=== PATIENT | female | born 1940 | race Caucasian/White ===

== ENCOUNTER 2021-01-11 14:50 | Inpatient (IN) ==
[2021-01-11] MEDS ORDERED: Ondansetron 4 MG/2 ML VIAL IVP ONE ×2 (14:54→17:36)
[2021-01-11] MEDS ORDERED: 0.9 % Sodium Chloride 1,000 ML IVC ONE (14:54)
[2021-01-11] MEDS ORDERED: Isovue-370 500 ML BOTTLE IVP ONE (14:55)
[2021-01-11] MEDS ORDERED: *HR* FentaNYL (PF) 100 MCG/2 ML VIAL IVP ONE (15:10)
[2021-01-11 16:09] LABS: Alanine Aminotransferase 12 Units/L (7-52); Albumin 4.4 g/dL (3.5-5.7); Albumin/Globulin Ratio 1.6 (1.1-2.2); Alkaline Phosphatase 103 Units/L (34-104); Aspartate Amino Transferase 20 Units/L (13-39); BUN/Creatinine Ratio 29 (6-26); Bilirubin,Direct 0.2 mg/dL (0.0-0.2); Bilirubin,Indirect 0.5 mg/dL (0.0-1.0); Bilirubin,Total 0.7 mg/dL (0.3-1.0); Blood Urea Nitrogen 25 mg/dL (8-23); Calcium 9.9 mg/dL (8.6-10.3); Carbon Dioxide 28 mEq/L (23-29); Chloride 96 mEq/L (98-107); Globulin 2.7 g/dL (2.4-3.5); Glucose 151 mg/dL (70-105); Osmolality,Calculated 291 (280-300); Potassium 3.6 mEq/L (3.5-5.1); Sodium 137 mEq/L (136-145); Total Protein 7.1 g/dL (6.4-8.9); Troponin I < 0.03 ng/mL (< 0.04); eGFR For African Americans > 60 (> 60); eGFR For Non-African Americans > 60 (> 60)
[2021-01-11 16:15] LABS: Bacteria,Urine Few per hpf (None-Few); Bilirubin,Urine Negative (Negative); Blood,Urine Negative (Negative); Clarity,Urine Clear (Clear); Color,Urine Yellow (Yellow); Glucose,Urine (UA) Normal (Normal); Hyaline Casts,Urine Few per lpf (None Seen); Ketones,Urine 40 mg/dL (Negative); Leukocyte Esterase,Urine Large (Negative); Mucus,Urine Few per lpf (None-Few); Nitrite,Urine Negative (Negative); PH,Urine 5.5 pH Units (5.0-8.0); Protein,Urine 30 mg/dL (Neg-Trace); Specific Gravity,Urine > 1.030 (1.010-1.025); Squamous Epithelial Cell,Urine Moderate per hpf (None-Few); WBC,Urine 30-50 per hpf (0-3)
[2021-01-11 16:18] LABS: Basophils % 0.2 %
[2021-01-11 16:20] LABS: Hematocrit 42.4 % (35.3-44.9)
[2021-01-11 16:26] LABS: Hemoglobin 14.3 g/dL (11.5-15.4); Immature Granulocytes % 0.3 % (0-4); Immature Platelets 3.8 % (1.1-6.1); Lymphocytes # 0.7 K/mcL (0.6-4.6); Lymphocytes % 6.8 %; Mean Corpuscular HGB Conc 33.7 g/dL (31.6-35.5); Mean Corpuscular Hemoglobin 30.6 pg (28.0-33.3); Mean Corpuscular Volume 90.6 fL (83.0-100.0); Mean Platelet Volume 10.3 fL (9.4-12.4); Monocytes # 0.4 K/mcL (0.0-1.3); Monocytes % 3.6 %; Platelet Count 262 K/mcL (140-400); Red Blood Count 4.68 M/mcL (3.82-4.97); Red Cell Distribution Width 12.1 % (11.5-14.5); Segmented Neutrophils % 89.1 %; White Blood Count 10.1 K/mcL (4.3-11.1)
[2021-01-11 16:42] LABS: Platelet Estimate Normal (Normal)
[2021-01-11] MEDS ORDERED: cefTRIAXone 1,000 MG in 0.9 % Sodium Chloride Mini Bag 100 ML IVPB ONE (16:43)
[2021-01-11] MEDS ORDERED: *HR* HYDROmorphone (PF) 1 MG/ML SYRINGE IVP ONE (18:29)
[2021-01-11] MEDS ORDERED: Metoclopramide 10 MG/2 ML VIAL IVP STA (18:29)
[2021-01-11] MEDS ORDERED: Ondansetron 4 MG/2 ML VIAL IVP PRN (21:39)
[2021-01-11] MEDS ORDERED: Naloxone 0.4 MG/ML INJ IVP PRN (21:39)
[2021-01-11] MEDS ORDERED: Ketorolac 15 MG/ML VIAL IVP ONE (22:19)
[2021-01-11] MEDS ORDERED: *HR* Metoprolol 5 MG/5 ML VIAL IVP ONE (23:16)
[2021-01-11] MEDS: 0.9 % Sodium Chloride 1,000 ML IVC SCH (23:19)
[2021-01-12] MEDS: Chloraseptic Spray 177 ML BOTTLE MM PRN ×2 (00:45→20:26)
[2021-01-12] MEDS: Famotidine 20 MG/2 ML VIAL IVP SCH ×2 (00:45→08:50)
[2021-01-12 05:30] LABS: Mean Corpuscular HGB Conc 33.1 g/dL (31.6-35.5); Mean Corpuscular Hemoglobin 30.6 pg (28.0-33.3); Mean Corpuscular Volume 92.4 fL (83.0-100.0); Mean Platelet Volume 10.2 fL (9.4-12.4); Platelet Count 182 K/mcL (140-400); Red Blood Count 3.14 M/mcL (3.82-4.97); Red Cell Distribution Width 12.4 % (11.5-14.5)
[2021-01-12 05:31] LABS: Hemoglobin 9.6 g/dL (11.5-15.4)
[2021-01-12 05:47] LABS: BUN/Creatinine Ratio 28 (6-26); Blood Urea Nitrogen 24 mg/dL (8-23); Calcium 8.3 mg/dL (8.6-10.3); Carbon Dioxide 33 mEq/L (23-29); Chloride 101 mEq/L (98-107); Chol/HDL Ratio 3.5 (0-4.9); Cholesterol 115 mg/dL (< 200); Glucose 103 mg/dL (70-105); HDL Cholesterol 33 mg/dL (40-59); LDL Cholesterol,Calculated 64 mg/dL (< 100); Magnesium 1.8 mg/dL (1.6-2.6); Osmolality,Calculated 292 (280-300); Potassium 3.4 mEq/L (3.5-5.1); Sodium 139 mEq/L (136-145); Triglycerides 90 mg/dL (< 150); eGFR For African Americans > 60 (> 60); eGFR For Non-African Americans > 60 (> 60)
[2021-01-12] MEDS: 0.9 % Sodium Chloride 1,000 ML IVC SCH (12:53)
[2021-01-12] MEDS ORDERED: Potassium Chloride 40 MEQ, Lidocaine 1% 2 ML in 0.9 % Sodium Chloride 500 ML IVPB ONE (13:23)
[2021-01-12 16:46] LABS: Hematocrit 29.9 % (35.3-44.9); Hemoglobin 9.9 g/dL (11.5-15.4); Mean Corpuscular HGB Conc 33.1 g/dL (31.6-35.5); Mean Corpuscular Hemoglobin 30.8 pg (28.0-33.3); Mean Corpuscular Volume 93.1 fL (83.0-100.0); Mean Platelet Volume 9.7 fL (9.4-12.4); Platelet Count 181 K/mcL (140-400); Red Blood Count 3.21 M/mcL (3.82-4.97); Red Cell Distribution Width 12.1 % (11.5-14.5); White Blood Count 5.8 K/mcL (4.3-11.1)
[2021-01-12] MEDS ORDERED: cefTRIAXone 1,000 MG in 0.9 % Sodium Chloride Mini Bag 100 ML IVPB SCH (17:00)
[2021-01-12] MEDS ORDERED: *HR* HYDROmorphone (PF) 1 MG/ML SYRINGE IVP ONE (18:24)
[2021-01-12] MEDS: Pantoprazole 40 MG VIAL IVP SCH (18:50)
[2021-01-12] MEDS ORDERED: *HR* LORazepam 2 MG/ML VIAL IVP ONE (19:56)
[2021-01-13] MEDS ORDERED: D5% in Water 1,000 ML IVC PRN ×2 (00:26→13:09)
[2021-01-13] MEDS ORDERED: *HR* Dextrose 50 % in Water (Vial) 50 ML VIAL IVP PRN ×2 (00:26→13:09)
[2021-01-13] MEDS ORDERED: Dextrose Gel 15 GM/37.5 ML TUBE PO PRN ×4 (00:26→13:09)
[2021-01-13] MEDS: Pantoprazole 40 MG VIAL IVP SCH ×2 (06:39→17:33)
[2021-01-13] MEDS ORDERED: Acetaminophen IV 500 MG/50 ML BAG IVPB ONE (06:46)
[2021-01-13 07:25] LABS: Hematocrit 33.1 % (35.3-44.9); Hemoglobin 10.7 g/dL (11.5-15.4); Mean Corpuscular HGB Conc 32.3 g/dL (31.6-35.5); Mean Corpuscular Hemoglobin 30.1 pg (28.0-33.3); Mean Platelet Volume 9.8 fL (9.4-12.4); Platelet Count 213 K/mcL (140-400); Red Blood Count 3.56 M/mcL (3.82-4.97); White Blood Count 6.5 K/mcL (4.3-11.1)
[2021-01-13 07:45] LABS: BUN/Creatinine Ratio 31 (6-26); Blood Urea Nitrogen 18 mg/dL (8-23); Calcium 8.6 mg/dL (8.6-10.3); Carbon Dioxide 29 mEq/L (23-29); Chloride 105 mEq/L (98-107); Glucose 68 mg/dL (70-105); Magnesium 1.7 mg/dL (1.6-2.6); Osmolality,Calculated 292 (280-300); Phosphorous 2.7 mg/dL (2.7-4.5); Potassium 3.7 mEq/L (3.5-5.1); Sodium 141 mEq/L (136-145); eGFR For African Americans > 60 (> 60); eGFR For Non-African Americans > 60 (> 60)
[2021-01-13] MEDS ORDERED: *HR* LORazepam 2 MG/ML VIAL IVP ONE ×3 (08:35→17:50)
[2021-01-13] MEDS ORDERED: cefOXitin 1,000 MG, Sodium Chloride IRRigation 1,000 ML IR ONE ×2 (09:30→13:09)
[2021-01-13] MEDS ORDERED: *HR* Rocuronium Bromide 50 MG/5 ML VIAL ONE (09:37)
[2021-01-13] MEDS ORDERED: *HR* Succinylcholine 200 MG/10 ML VIAL IVP ONE (09:37)
[2021-01-13] MEDS ORDERED: *HR* Propofol 200 MG/20 ML VIAL IVP ONE (09:37)
[2021-01-13] MEDS ORDERED: Lidocaine -MPF 2% 2 ML VIAL ONE (09:37)
[2021-01-13] MEDS ORDERED: *HR* FentaNYL (PF) 100 MCG/2 ML VIAL ONE ×2 (09:37→10:43)
[2021-01-13] MEDS ORDERED: Ondansetron 4 MG/2 ML VIAL ONE (09:37)
[2021-01-13] MEDS ORDERED: Lidocaine HCL 4 ML Topical Solution (Laryng-O-Jet Kit Sterile Pak) TP ONE (09:37)
[2021-01-13] MEDS ORDERED: CefOXitin 1,000 MG VIAL ONE (10:08)
[2021-01-13] MEDS ORDERED: *HR* OxyCODONE Immed Rel 5 MG TABLET PO PRN (10:10)
[2021-01-13] MEDS ORDERED: *HR* HYDROmorphone PF 0.5 MG/0.5 ML SYRINGE IVP PRN (10:10)
[2021-01-13] MEDS ORDERED: *HR* HYDROMORPHONE 2 MG/ML VIAL ONE (10:49)
[2021-01-13] MEDS ORDERED: Sugammadex Sodium 200 MG/2 ML VIAL IV ONE (10:59)
[2021-01-13] MEDS ORDERED: *HR* HYDROmorphone (PF) 1 MG/ML SYRINGE IVP PRN (12:03)
[2021-01-13] MEDS ORDERED: Chloraseptic Spray 177 ML BOTTLE MM PRN (13:09)
[2021-01-13] MEDS ORDERED: Ondansetron 4 MG/2 ML VIAL IVP PRN (13:09)
[2021-01-13] MEDS ORDERED: Naloxone 0.4 MG/ML INJ IVP PRN (13:09)
[2021-01-13] MEDS: Morphine Sulfate 2 MG/ML SYRINGE IVP PRN ×3 (14:11→23:52)
[2021-01-13] MEDS: 0.9 % Sodium Chloride 1,000 ML IVC SCH (15:31)
[2021-01-13] MEDS ORDERED: cefTRIAXone 1,000 MG in 0.9 % Sodium Chloride Mini Bag 100 ML IVPB SCH (17:00)
[2021-01-13] MEDS ORDERED: Acetaminophen IV 1,000 MG/100 ML BAG IVPB ONE (17:49)
[2021-01-13] MEDS: methocarbamoL 500 MG TABLET PO SCH (19:20)
[2021-01-13] MEDS: rOPINIRole 0.25 MG TABLET PO SCH (19:24)
[2021-01-13] MEDS: rOPINIRole 1 MG TABLET PO SCH (20:57)
[2021-01-13] MEDS: Pregabalin 75 MG CAPSULE PO SCH (20:57)
[2021-01-14 03:28] LABS: Hematocrit 31.5 % (35.3-44.9); Hemoglobin 10.6 g/dL (11.5-15.4); Mean Corpuscular HGB Conc 33.7 g/dL (31.6-35.5); Mean Corpuscular Hemoglobin 30.5 pg (28.0-33.3); Mean Corpuscular Volume 90.8 fL (83.0-100.0); Mean Platelet Volume 9.9 fL (9.4-12.4); Platelet Count 275 K/mcL (140-400); Red Blood Count 3.47 M/mcL (3.82-4.97); Red Cell Distribution Width 11.9 % (11.5-14.5)
[2021-01-14 03:29] LABS: White Blood Count 10.4 K/mcL (4.3-11.1)
[2021-01-14 03:35] LABS: BUN/Creatinine Ratio 25 (6-26); Blood Urea Nitrogen 15 mg/dL (8-23); Calcium 8.2 mg/dL (8.6-10.3); Carbon Dioxide 22 mEq/L (23-29); Chloride 106 mEq/L (98-107); Glucose 84 mg/dL (70-105); Magnesium 1.5 mg/dL (1.6-2.6); Osmolality,Calculated 288 (280-300); Phosphorous 3.8 mg/dL (2.7-4.5); Potassium 4.3 mEq/L (3.5-5.1); Sodium 139 mEq/L (136-145); eGFR For African Americans > 60 (> 60); eGFR For Non-African Americans > 60 (> 60)
[2021-01-14] MEDS: 0.9 % Sodium Chloride 1,000 ML IVC SCH ×3 (04:16→23:50)
[2021-01-14] MEDS: Pantoprazole 40 MG VIAL IVP SCH ×2 (05:38→18:56)
[2021-01-14] MEDS: Morphine Sulfate 2 MG/ML SYRINGE IVP PRN ×3 (05:41→21:43)
[2021-01-14] MEDS ORDERED: *HR* LORazepam 2 MG/ML VIAL IVP ONE (06:20)
[2021-01-14] MEDS ORDERED: *HR* Metoprolol 5 MG/5 ML VIAL IVP ONE (06:53)
[2021-01-14] MEDS: rOPINIRole 0.25 MG TABLET PO SCH (09:20)
[2021-01-14] MEDS: Pregabalin 75 MG CAPSULE PO SCH ×2 (09:21→21:24)
[2021-01-14] MEDS: methocarbamoL 500 MG TABLET PO SCH (09:21)
[2021-01-14] MEDS: Ampicillin/Sulbactam 3,000 MG in 0.9 % Sodium Chloride Mini Bag 100 ML IVPB SCH ×3 (12:00→23:49)
[2021-01-14] MEDS: rOPINIRole 1 MG TABLET PO SCH (21:24)
[2021-01-15 02:40] LABS: Hematocrit 29.4 % (35.3-44.9); Hemoglobin 9.7 g/dL (11.5-15.4); Mean Platelet Volume 9.2 fL (9.4-12.4); Platelet Count 212 K/mcL (140-400); Red Blood Count 3.23 M/mcL (3.82-4.97); White Blood Count 8.1 K/mcL (4.3-11.1)
[2021-01-15 02:57] LABS: BUN/Creatinine Ratio 21 (6-26); Blood Urea Nitrogen 10 mg/dL (8-23); Carbon Dioxide 25 mEq/L (23-29); Chloride 106 mEq/L (98-107); Glucose 80 mg/dL (70-105); Magnesium 1.7 mg/dL (1.6-2.6); Osmolality,Calculated 288 (280-300); Potassium 3.5 mEq/L (3.5-5.1); Sodium 140 mEq/L (136-145); eGFR For African Americans > 60 (> 60); eGFR For Non-African Americans > 60 (> 60)
[2021-01-15] MEDS: Ampicillin/Sulbactam 3,000 MG in 0.9 % Sodium Chloride Mini Bag 100 ML IVPB SCH ×3 (06:24→18:08)
[2021-01-15] MEDS: 0.9 % Sodium Chloride 1,000 ML IVC SCH ×2 (06:24→20:18)
[2021-01-15] MEDS: Pantoprazole 40 MG VIAL IVP SCH ×2 (06:24→18:08)
[2021-01-15] MEDS ORDERED: Patient Taking Own Medication 1 EACH IT PRN (09:00)
[2021-01-15] MEDS: Pregabalin 75 MG CAPSULE PO SCH ×2 (09:18→20:13)
[2021-01-15] MEDS: Morphine Sulfate 2 MG/ML SYRINGE IVP PRN ×2 (09:18→12:06)
[2021-01-15] MEDS: methocarbamoL 500 MG TABLET PO SCH (09:19)
[2021-01-15] MEDS: rOPINIRole 0.25 MG TABLET PO SCH (09:19)
[2021-01-15] MEDS ORDERED: *HR* HYDROmorphone (PF) 1 MG/ML SYRINGE IVP PRN (15:40)
[2021-01-15] MEDS: *HR* HYDROmorphone (PF) 1 MG/ML SYRINGE IVP PRN ×2 (16:39→22:32)
[2021-01-15] MEDS: Morphine Sulfate ER (12 HR) 15 MG TABLET.ER PO SCH (18:08)
[2021-01-15] MEDS ORDERED: *HR* HYDROmorphone (PF) 1 MG/ML SYRINGE IVP ONE (18:32)
[2021-01-15] MEDS: rOPINIRole 1 MG TABLET PO SCH (20:13)
[2021-01-16] MEDS: Ampicillin/Sulbactam 3,000 MG in 0.9 % Sodium Chloride Mini Bag 100 ML IVPB SCH ×3 (01:08→12:54)
[2021-01-16] MEDS: *HR* HYDROmorphone (PF) 1 MG/ML SYRINGE IVP PRN ×4 (04:21→19:27)
[2021-01-16] MEDS: Pantoprazole 40 MG VIAL IVP SCH ×2 (06:27→17:09)
[2021-01-16] MEDS: Morphine Sulfate ER (12 HR) 15 MG TABLET.ER PO SCH ×2 (06:40→17:08)
[2021-01-16] MEDS: 0.9 % Sodium Chloride 1,000 ML IVC SCH ×2 (06:40→17:08)
[2021-01-16 06:57] LABS: Hematocrit 27.1 % (35.3-44.9); Hemoglobin 9.1 g/dL (11.5-15.4); Mean Corpuscular HGB Conc 33.6 g/dL (31.6-35.5); Mean Corpuscular Hemoglobin 30.6 pg (28.0-33.3); Mean Corpuscular Volume 91.2 fL (83.0-100.0); Mean Platelet Volume 9.4 fL (9.4-12.4); Platelet Count 203 K/mcL (140-400); Red Blood Count 2.97 M/mcL (3.82-4.97); White Blood Count 7.2 K/mcL (4.3-11.1)
[2021-01-16 07:26] LABS: BUN/Creatinine Ratio 14 (6-26); Blood Urea Nitrogen 6 mg/dL (8-23); Calcium 8.2 mg/dL (8.6-10.3); Carbon Dioxide 23 mEq/L (23-29); Chloride 107 mEq/L (98-107); Glucose 70 mg/dL (70-105); Osmolality,Calculated 286 (280-300); Potassium 3.1 mEq/L (3.5-5.1); Sodium 140 mEq/L (136-145); eGFR For African Americans > 60 (> 60); eGFR For Non-African Americans > 60 (> 60)
[2021-01-16] MEDS: rOPINIRole 0.25 MG TABLET PO SCH (08:12)
[2021-01-16] MEDS: methocarbamoL 500 MG TABLET PO SCH (08:13)
[2021-01-16] MEDS: Pregabalin 75 MG CAPSULE PO SCH ×2 (08:13→21:08)
[2021-01-16] MEDS ORDERED: Potassium Chloride 40 MEQ, Lidocaine 1% 2 ML in 0.9 % Sodium Chloride 500 ML IVPB ONE (08:16)
[2021-01-16] MEDS: rOPINIRole 1 MG TABLET PO SCH (21:09)
[2021-01-16] MEDS: lisinopriL 5 MG TABLET PO SCH (21:12)
[2021-01-17] MEDS: *HR* HYDROmorphone (PF) 1 MG/ML SYRINGE IVP PRN (02:59)
[2021-01-17] MEDS: 0.9 % Sodium Chloride 1,000 ML IVC SCH ×3 (03:31→09:24)
[2021-01-17] MEDS: Morphine Sulfate ER (12 HR) 15 MG TABLET.ER PO SCH (05:11)
[2021-01-17] MEDS: Pantoprazole 40 MG VIAL IVP SCH (05:11)
[2021-01-17 06:43] LABS: BUN/Creatinine Ratio 9 (6-26); Blood Urea Nitrogen 4 mg/dL (8-23); Calcium 8.3 mg/dL (8.6-10.3); Carbon Dioxide 27 mEq/L (23-29); Chloride 107 mEq/L (98-107); Glucose 65 mg/dL (70-105); Osmolality,Calculated 287 (280-300); Potassium 3.1 mEq/L (3.5-5.1); Sodium 141 mEq/L (136-145); eGFR For African Americans > 60 (> 60); eGFR For Non-African Americans > 60 (> 60)
[2021-01-17 07:03] LABS: Hematocrit 28.7 % (35.3-44.9); Hemoglobin 9.5 g/dL (11.5-15.4); Mean Corpuscular HGB Conc 33.1 g/dL (31.6-35.5); Mean Corpuscular Hemoglobin 30.2 pg (28.0-33.3); Mean Corpuscular Volume 91.1 fL (83.0-100.0); Mean Platelet Volume 9.2 fL (9.4-12.4); Platelet Count 215 K/mcL (140-400); Red Blood Count 3.15 M/mcL (3.82-4.97); Red Cell Distribution Width 12.1 % (11.5-14.5); White Blood Count 7.3 K/mcL (4.3-11.1)
[2021-01-17] MEDS: lisinopriL 5 MG TABLET PO SCH (10:04)
[2021-01-17] MEDS: polyethylene glycoL 3350 17 GM POWD.PACK PO SCH (10:04)
[2021-01-17] MEDS: methocarbamoL 500 MG TABLET PO SCH (10:04)
[2021-01-17] MEDS: Pregabalin 75 MG CAPSULE PO SCH ×2 (10:04→20:54)
[2021-01-17] MEDS: rOPINIRole 0.25 MG TABLET PO SCH (10:04)
[2021-01-17] MEDS ORDERED: Potassium Chloride 40 MEQ, Lidocaine 1% 2 ML in 0.9 % Sodium Chloride 500 ML IVPB ONE (12:40)
[2021-01-17] MEDS: rOPINIRole 1 MG TABLET PO SCH (20:53)
[2021-01-18 06:49] LABS: Hematocrit 27.8 % (35.3-44.9); Hemoglobin 9.4 g/dL (11.5-15.4); Mean Corpuscular HGB Conc 33.8 g/dL (31.6-35.5); Mean Corpuscular Hemoglobin 30.2 pg (28.0-33.3); Mean Corpuscular Volume 89.4 fL (83.0-100.0); Mean Platelet Volume 8.8 fL (9.4-12.4); Platelet Count 199 K/mcL (140-400); Red Blood Count 3.11 M/mcL (3.82-4.97); Red Cell Distribution Width 11.9 % (11.5-14.5); White Blood Count 5.5 K/mcL (4.3-11.1)
[2021-01-18] MEDS: lisinopriL 5 MG TABLET PO SCH (07:54)
[2021-01-18] MEDS: Pregabalin 75 MG CAPSULE PO SCH (07:54)
[2021-01-18] MEDS: rOPINIRole 0.25 MG TABLET PO SCH (07:54)
[2021-01-18] MEDS: polyethylene glycoL 3350 17 GM POWD.PACK PO SCH (07:55)
[2021-01-18] MEDS: methocarbamoL 500 MG TABLET PO SCH (08:04)
[2021-01-18 10:11] VITALS: BP 166/95; PULSE 96; TEMP 98; O2SAT 92
[2021-01-18 12:02] LABS: BUN/Creatinine Ratio 9 (6-26); Blood Urea Nitrogen 4 mg/dL (8-23); Carbon Dioxide 25 mEq/L (23-29); Chloride 105 mEq/L (98-107); Glucose 85 mg/dL (70-105); Potassium 3.2 mEq/L (3.5-5.1); Sodium 138 mEq/L (136-145); eGFR For African Americans > 60 (> 60); eGFR For Non-African Americans > 60 (> 60)
[2021-01-18 12:03] LABS: Calcium 8.3 mg/dL (8.6-10.3); Osmolality,Calculated 282 (280-300)
== END 2021-01-18 14:51 | disposition home or self-care (01) | DRG 327 ==
LOC: EMEROOARM 14:50 → 3ANU 14:50 → SUATTDRO 20:04 → 3ANU 20:56 → SUATTDRO 01-12 16:29
PROVIDERS: ADMIT Student in an Organized Health Care Education/Training Program; ATTEND Internal Medicine